=== PATIENT | female | born 1955 | race Caucasian/White ===

== ENCOUNTER 2016-11-28 11:18 | Emergency (ER) | payer BC ==
[2016-11-28 12:17] LABS: BASOPHILS 0.1 % (0.0-2.0); EOSINOPHILS 0.1 % (0-7); HEMATOCRIT 41.2 % (36.0-48.0); HEMOGLOBIN 14.1 g/dL (12-16); IMMATURE GRANULOCYTES 0.1 % (0-5); LYMPHOCYTES 11.5 % (15-50); MCH 29.3 pg (26.0-34.0); MCHC 34.2 g/dL (31.0-37.0); MCV 85.7 fL (80.0-100.0); MEAN PLATELET VOLUME 9.1 fL (7.4-10.4); MONOCYTES 7.7 % (2-11); NEUTROPHILS 80.5 % (40-80); PLATELET COUNT 239 10x3/uL (130-400); RBC 4.81 10x6/uL (4.00-5.40); RDW 13.8 % (11.5-14.5); WBC 8.3 10x3/uL (4.8-10.8)
[2016-11-28 12:24] LABS: CALC OSMOLALITY 284 mosm/kg (275-300); CARBON DIOXIDE 24.9 mmol/L (21.0-32.0); CHLORIDE - SERUM 105 mmol/L (98-107); CREATININE - SERUM 0.2 mg/dL (0.6-1.3); GLUCOSE 100 mg/dL (74-106); POTASSIUM - SERUM 3.8 mmol/L (3.5-5.1); SODIUM 143 mmol/L (136-145); UREA NITROGEN 12 mg/dL (7-18); eGFR NON AFRICAN AMERICAN > 90 mL/min (90-120)
[2016-11-30 09:32] VITALS: BMI 25.0
== END 2016-11-28 14:55 | disposition home or self-care (01) ==
LOC: D.ER 11:18
PROVIDERS: Nurse Practitioner Acute Care
DX: R00.2 Palpitations (principal); R00.0 Tachycardia, unspecified

== ENCOUNTER 2016-11-30 09:05 | Day surgery (SDC) | payer BC ==
[~2016-11-30] VITALS: Ht 165.1 cm; Wt 68.0 kg
[2016-11-30] MEDS ORDERED: HYDROCODON-ACE1 EAC7 PO (09:18)
[2016-11-30 09:32] VITALS: BP 166/98; Ht 165.1 cm; Wt 68.0 kg
--- NOTE | 2016-11-30 20:11 | NUR ---
1730 DC INSTS. REVIEWED VOICED UNDERSTANDING. IV HAS BEEN DC'D WITH CATH INTACT. PT. IS DRESSED. STATES READY TO RELEASE HOME. CRITERIA MET. HAS VOIDED. RELEASED IN WC. HAS CRUTCHES.
--- NOTE | 2016-12-03 11:00 | OP ---
PATIENT NAME: LUCIA CONNER MEDICAL RECORD: [id number] :51 LOCATION:[facility] ADMISSION DATE: SURGEON: AUGUSTINE CORBETT MD DATE OF OPERATION: 11/30/2016 PREOPERATIVE DIAGNOSIS: Right ankle bimalleolar fracture. POSTOPERATIVE DIAGNOSIS: Right ankle bimalleolar fracture. PROCEDURE: Right ankle open reduction and internal fixation of bimalleolar fracture using a [place] nail laterally and cannulated screws medially. SURGEON: Jose Corbett MD ANESTHESIA: General with a block for postop pain. TOURNIQUET: Not used. ESTIMATED BLOOD LOSS: Minimal. CONDITION: She tolerated the procedure well, was transferred to the recovery room in stable condition at termination of the procedure. INDICATIONS: This is a 61-year-old female that fell approximately 5 days ago twisted her ankle and had significant bimalleolar ankle fracture. She was seen in the office this week and was scheduled for surgery. We discussed risks, benefits, and alternatives including blood loss, scar, pain, need for further procedure, anesthesia, risk of infection, nerve, artery and vein injuries, swelling, hardware failure, hardware pain. She understood and wished to proceed. OPERATIVE REPORT: The patient was taken to the operating room and placed in supine position. General anesthesia was obtained. She was given a block in the preop holding area. In the operating room, right ankle was confirmed to be the correct ankle. It was prepped and draped in normal fashion. Once this was accomplished, she did receive Ancef per protocol. I made a lateral incision, took this down, reduced the lateral malleolar fracture with a clamp. I then placed the pin through the distal tip of the fibula. Once this was verified on AP and lateral views, I overdrilled this with a larger drill then placed a smaller pin and over drilled up to the end of the shaft. I then placed a [place] nail ____ the wings proximally. I then placed 2 locking screws distally, a 14 and 16 and an end cap. These all have fibula very well aligned. I then went to the medial side, made a small incision, open this up and reduce the medial malleolar piece. I placed 2 guidewires over which, I placed two 4.5 cannulated screws with a washer on the posterior of the two. This reduced the fragment very well, but the anterior screw was too prominent. I felt like the posterior screw was very stable, I therefore took out the anterior screw and left just a single screw. I did not feel like I had good enough bone to place a second screw through this area. I then copiously irrigated. I then closed with 2-0 Vicryl, then 3-0 Prolene, placed her in AO type splint. She was awakened and transferred to recovery room in stable condition, having tolerated the procedure well. TRANSINT:[id number] Voice Confirmation ID: [id number] DOCUMENT ID: [id number] OPERATIVE REPORT [id number] LUCIA CONNER, AUGUSTINE KELLER MD at 1100 CC: [id number] DICTATION DATE: 11/30/16 1558 PROMOTIONS INTERN: 11/30/16 2341 [facility] 11/30/16 [place] [id number] [place] [address]
== END 2016-11-30 17:30 | disposition home or self-care (01) ==
LOC: D.OPS 09:05 → D.PAN 11:30 → D.OPS 11:30
DX: S82.841A Displaced bimalleolar fracture of right lower leg, initial encounter for closed fracture (principal)

== ENCOUNTER → 2019-06-12 13:58 | Outpatient (CLI) | payer MEDICARE ==
[2016-11-30 09:32] VITALS: BMI 25.0
[~2019-06-12 13:58] MED LIST: HYDROCODON-ACE1 EAC7 PO
--- NOTE | 2019-06-14 12:59 | EC ---
PATIENT:LUCIA CONNER DATE OF SERVICE: 06/12/19 SEX: F MEDICAL RECORD: [id number] DATE OF : 51 LOCATION:[facility] AGE OF PATIENT: 64 ADMISSION DATE: 06/12/19 REFERRING PHYSICIAN: INTERPRETING PHYSICIAN: RAPHAEL HERNANDEZ MD ECHOCARDIOGRAM REPORT ECHO CHARGES 4 ECHO COMPLETE Date: 06/12/19 CLINICAL DIAGNOSIS: SVT/MURMUR ECHOCARDIOGRAPHIC MEASUREMENTS (adult normal given) AC root (d.<3.7cm) 2.4 cm LV Septum d (<1.2 cm> 1.2 cm Valve Excursion 1.6 cm LV Septum (systole) 1.6 cm Left Atria (s.<4.0cm> 3.4 cm LVPW d(<1.2cm) 1.2 cm RV (d.<2.3cm) 2.4 cm LVPW (sytole) 1.5 cm LV diastole(<5.6CM) 4.8 cm MV E-F(>70mm/sec) cm LV systole 3.0 cm LVOT Diameter 1.6 cm MV exc.(>10mm) cm Est.ejection fraction (50-75%) % DOPPLER: LVIT cm/sec A 90.0 cm/sec E 62.0 cm/sec LA cm/sec RVSP 26.2 mmHg LVOT 122 cm/sec AOP1/2T m/s Asc. Ao 150 cm/sec RVOT 70.0 cm/sec RA cm/sec PA 102 cm/sec AV Gradient Peak 9.0 mmHg AV Mean 4.3 mmHg AV Area 1.7 cm MV Gradient Peak 5.5 mmHg MV Mean 1.5 mmHg MV Area cm COMMENTS: OP - HC Oxygen Therapist: 1 BRANDON POOL Whittling Room Operator: 3 Dr. Schultz TAPE# PACS Pericardial Effusion N DATE OF SERVICE: Adequate 2D, Color Flow, Spectral Doppler, and M-Mode LVH is present. LV internal dimension is normal. Wall motion is normal. EF is greater than or equal to 55%. Aortic valve is tricuspid. No evidence of stenosis by Doppler interrogation. Left atrium normal at 3.4 cm. Mitral valve shows no prolapse. Trace MR. Right-sided chambers are grossly normal. Trace TR. ECHOCARDIOGRAM REPORT [id number] LUCIA CONNER TRANSINT:[id number] Voice Confirmation ID: [id number] DOCUMENT ID: [id number] RAPHAEL HERNANDEZ MD at 1259 CC: [id number] DICTATION DATE: 06/13/19 1431 HAND FLATWORK FINISHER: 06/13/19 2308 DEP CLI 06/12/19 [place] [id number] [place] [id number]
== END | disposition home or self-care (01) ==
LOC: D.HCCECHO 13:58
PROVIDERS: ATTEND Internal Medicine Interventional Cardiology
DX: R01.1 Cardiac murmur, unspecified (principal)